=== PATIENT | male | born 1970 | race Caucasian/White ===

== ENCOUNTER 2023-11-02 13:23 | Emergency (ER) | payer BC, SELFPAY ==
[2023-11-02 13:29] VITALS: BP 146/83
[2023-11-02 13:51] LABS: % Basophils 0.6 % (0-2); % Eosinophils 1.7 % (0-6); % Immature Granulocytes 0.3 % (0-0.5); % Lymphocytes 38.9 % (20.5-51.1); % Monocytes 5.9 % (1.7-9.3); % Neutrophils 52.6 % (42.2-75.2); Absolute Eosinophils 0.1 10^3/uL (0-0.7); Absolute Lymphocytes 2.7 10^3/uL (1.2-3.4); Absolute Monocytes 0.4 10^3/uL (0.1-0.6); Absolute Neutrophils 3.7 10^3/uL (1.4-6.5); Hematocrit 46.5 % (39.0-52.0); Hemoglobin 16.3 g/dL (13.0-18.0); Mean Corp Hgb Conc. 35.1 g/dL (33.0-37.0); Mean Corpuscular Hgb 30.8 pg (27.0-31.0); Mean Corpuscular Volume 87.9 fL (80.0-94.0); Mean Platelet Volume 9.7 fL (7.4-10.4); Nucleated Red Blood Cells % 0 % (-); Platelet Count 224 10^3/uL (130-400); Red Blood Cell Count 5.29 10^6/uL (4.70-6.10); Red Cell Dist. Width 12.7 % (11.5-14.5)
[2023-11-02 14:06] LABS: ALT (SGPT) 23 U/L (0-50); AST (SGOT) 24 U/L (17-59); Albumin 4.5 g/dl (3.5-5.0); Alkaline Phosphatase 56 U/L (38-126); Blood Urea Nitrogen 16 mg/dl (9-20); Calcium 9.9 mg/dl (8.4-10.2); Carbon Dioxide 27 mmol/L (22-30); Chloride 106 mmol/L (98-107); Glucose 106 mg/dl (70-99); Lipase 96 U/L (23-300); Potassium 4.9 mmol/L (3.5-5.1); Sodium 138 mmol/L (135-145); Total Bilirubin 0.9 mg/dl (0.2-1.3); eGFR > 60.00
[2023-11-02 14:18] LABS: Troponin I < 0.012 ng/ml
[2023-11-02 14:29] VITALS: BMI 28.0
[2023-11-02 14:30] VITALS: BP 136/97
[2023-11-02 15:00] VITALS: BP 128/84
--- NOTE | 2023-11-02 15:40 | ED.GENMED ---
History of Present Illness
General
Chief Complaint: Chest Pain
Source: patient
Exam Limitations: none
Time Seen by Provider: 11/02/23 14:37
Nursing documentation reviewed up to this point in time: agreed with
Travel History
Have you had any contact with someone who has COVID-19?: No
Do you have any symptoms of coronavirus? Fever > 100 degrees, chills, cough, shortness of breath, sore throat, loss of taste or smell, muscle aches, or headache?: No
History of Present Illness
History of Present Illness:
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 Lasted about 7 minutes. [place] clammy and lightheaded during episode. Denies n/v. Asymptomatic now
Past History
Past History
ED Past Medical History: HTN and Psychiatric (anxiety)
ED Past Surgical History: Orthopedic (R hip replaced)
Social History
Tobacco: Non-smoker
Personal:
Living: with family
Employment: Employed
Family History
Family History: Negative Early CAD or Sudden
Review of Systems
Review of Systems
Allergies reviewed?: Yes
All Other Systems: ROS reviewed and negative except as documented in HPI and ROS
Constitutional: Denies fever
Respiratory: Denies trouble breathing
Cardiac: Reports chest pain and diaphoresis; Denies palpitations or syncope
ABD/GI: Denies abdominal pain, nausea or vomiting
Musculoskeletal: Reports no symptoms
Skin: Reports no symptoms
Neurological: Reports no symptoms
Phy Exam
Physical Exam
Physical Exam:
GENERAL: No acute distress. A&Ox3.
CONSTITUTIONAL: Afebrile.
EYES: clear, conjunctivae normal
ENMT: moist mucus membranes, Pharynx nl
RESPIRATORY: Regular respirations, nonlabored, lungs clear.
CARDIOVASCULAR: Regular rate and rhythm, no murmurs, no rubs.
GI: Soft, nontender, normal BS
MUSCULOSKELETAL: Moves with ease. Well perfused.
SKIN: Warm, dry, pink
PSYCH: Normal mood and affect. Well kept, interactive and appropriate
NEUROLOGIC: Awake, alert and oriented. No focal neurological deficits
Scores
Heart Score for Chest Pain Patients
STEMI patient?: No
History: Slightly or Non-Suspicious
ECG: Normal
Age: >45 - <65 years
Risk Factors: 1 or 2 Risk Factors
Troponin: </= Normal Limit
Heart Score for Chest Pain Patients: 2
Heart Score Risk: 2.5% MACE over next 6 weeks
Course
Orders/Labs/Results
Orders:
Orders
11/02/23 13:25
EKG [Electrocardiogram (*1)] Urgent
Reason for Study: Chest Pain
EKG- Treatment ONCE
11/02/23 13:40
Complete Blood Count/With Diff Urgent
Comprehensive Metabolic Panel Urgent
Lipase Urgent
Troponin I Urgent
11/02/23 14:43
EKG- Treatment ONCE
11/02/23 14:44
CR Chest - 2 Views Urgent
Comment:
Reason For Exam: chest pain
11/02/23 16:30
Electrocardiogram (*1) Urgent
Reason for Study: Chest Pain
11/02/23 16:44
Troponin I Urgent
Abnormal Lab Results
11/02/23
13:40
Glucose 106 H mg/dl
(70-99)
11/02/23 13:40
11/02/23 13:40
Vital Signs
Initial and Last Documented VS:
Initial Vital Signs
Temp Pulse Resp BP Pulse Ox
98.2 F 59 20 146/83 97
11/02/23 13:29 11/02/23 13:29 11/02/23 13:29 11/02/23 13:29 11/02/23 13:29
Last Documented Vital Signs
Temp Pulse Resp BP Pulse Ox
98.2 F 62 11 146/101 95
11/02/23 13:29 11/02/23 15:14 11/02/23 15:14 11/02/23 16:36 11/02/23 15:14
MDM/Problems Addressed
Differential Diagnosis Includes:
ACS, IN, GERD
MDM/Problems Addressed:
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 Lasted about 7 minutes. [place] clammy and lightheaded during episode. Denies n/v. Asymptomatic now
2:00 p.m.
CBC normal
CMP normal
Tropinin normal
EKG: Sinus bradycardia
3:45 p.m.
CXR: NAD
5:17 p.m.
Troponin #2 WNL
EKG unchanged
Stable for discharge
Referred to cardiology hotline
*Critical Care Note
Total Time (30-74mins, 75-104mins- exclusive of procedures): Not Applicable
ED Attending Note
-
Portions of this chart may have been created with voice recognition software.� Occasional wrong word or��sound alike� substitutions may have occurred due to the inherent limitations of voice recognition software.
Discharge Plan
Departure
Patient Disposition: Home (Routine Discharge)
Date of Disposition: 11/02/23
Time of Disposition: 17:18
Patient with high blood pressure during this ER visit?: No
Condition: Good
Discharge Problem:
Atypical chest pain
Instructions: Acid Reflux and GERD in Adults (DC), Chest Pain DCA Follow Up
Prescriptions:
No Action
losartan 100 MG tablet
100 mg PO HS
sertraline 50 MG tablet
50 mg PO HS
celecoxib 200 MG capsule
200 mg PO DAILY 0RF
sennosides [senna] 1 TABLET tablet
1 tab PO HS 0RF
acetaminophen 325 MG tablet
650 mg PO Q4HPRN PRN (Reason: mild pain) 0RF
aspirin 325 MG tablet
325 mg PO DAILY 0RF
docusate sodium 100 MG capsule
100 mg PO BID 0RF
mupirocin 1 APPLIC ointment
1 applic intranasal BID 0RF
mupirocin 1 GRAM ointment
1 g intranasal SDS-ONCEPRN PRN (Reason: if pt did not self-administer) 0RF
oxycodone 5 MG tablet
5 mg PO Q4HPRN PRN (Reason: pain) 0RF
Referrals:
Donnie Varela MD [Family Provider] - As needed
Activity Restrictions/Additional Instructions:
As we discussed, your workup here today shows nothing worrisome, specifically no sign of a heart attack or injury to your heart.
Sometimes acid reflux can present as chest pain
Interventions
Interventions:
*Risk Screen - Suicide Last Done: 11/02/23 14:29
*General Assessment Last Done: 11/02/23 14:29
*Neglect/Abuse Screening Last Done: 11/02/23 14:29
ED- Fall Risk Assessment Last Done: 11/02/23 14:29
*ED COVID-19 Vaccine History Last Done: 11/02/23 14:29
*Nursing Disposition Last Done: 11/02/23 17:42
ED- Cardiac Assessment Last Done: 11/02/23 14:29
Discharge Date and Time
Discharge Date/Time: 11/02/23 17:43
Print Language: [email or web address]
[2023-11-02 16:36] VITALS: BP 146/101
[2023-11-02 17:16] LABS: Troponin I < 0.012 ng/ml
== END 2023-11-02 17:43 | disposition home or self-care (01) ==
LOC: EMR 13:23
PROVIDERS: Emergency Medicine; Registered Nurse; EMERGENCY PHYSICIAN Emergency Medicine; FAMILY PHYSICIAN Internal Medicine
DX: R07.89 Other chest pain (principal); I10 Essential (primary) hypertension; K21.9 Gastro-esophageal reflux disease without esophagitis; F41.9 Anxiety disorder, unspecified
CPT/HCPCS: 99285; 71046; 80053; 83690; 84484; 85025; 93005